=== PATIENT | male | born 1965 | race American Indian/Alaskan Native ===

== ENCOUNTER 2018-01-14 08:07 | Emergency (ER) | payer MEDICARE ==
[2018-01-14 08:17] VITALS: BP 132/89
--- NOTE | 2018-01-14 10:05 | Emergency Department Report ---
ED Back Pain/Injury HPI - General Chief Complaint: Back Pain/Injury Stated Complaint: LOWER BACK AND HIP PAIN Time Seen by Provider: 01/14/18 09:50 Source: patient Limitations: No Limitations - History of Present Illness Initial Comments: This is a 52 y.o. male that presents to the emergency room with left lower back pain for 5 days. Patient states he was incarcerated in [facility] on January 09, 2018 and slipped and fell on water. He was sent for [place] and started on Tylenol and placed on the radius. Patient states pain increased and is a burning sensation in left lower back. Patient reports pain is 8 out of 10 on pain scale and a burning sensation. Pain is aggravated with movement. Patient radiating, numbness or tingling, swelling, bruising, fever, or warmth. MD Complaint: back pain Onset/Timin -: days(s) Similar Symptoms Previously: No Place: other ([facility]) Radiation: none Severity: moderate Severity scale (0 -10): 8 Quality: burning Consistency: intermittent Improves With: none Worsens With: movement, walking Context: fall Associated Symptoms: denies other symptoms Treatments Prior to Arrival: NSAIDS - Related Data Home Medications Medication Instructions Recorded Confirmed Last Taken ARIPiprazole [Abilify] 30 mg PO DAILY 12/28/13 12/28/13 Unknown Mirtazapine [Remeron] 15 mg PO HS 12/28/13 12/28/13 Unknown Trazodone HCl [traZODone] 100 mg PO HS 12/28/13 12/28/13 Unknown buPROPion [Wellbutrin] 200 mg PO HS 12/28/13 12/28/13 Unknown Previous Rx's Medication Instructions Recorded Last Taken Type HYDROcodone/APAP 5-325 [Kirwin 2 each PO Q6H PRN #30 tablet 02/15/13 Unknown Rx 5-325 mg TAB] chlordiazePOXIDE [Librium] 50 mg PO Q6H PRN #30 capsule 07/03/13 Unknown Rx Docusate Sodium [Colace] 50 mg PO TID #50 ml 10/27/13 Unknown Rx Ibuprofen [Motrin] 800 mg PO Q8H PRN #20 tablet 10/27/13 Unknown Rx Ibuprofen [Motrin 800 MG tab] 800 mg PO Q8HR PRN #15 tablet 01/14/18 Unknown Rx Allergies Allergy/AdvReac Type Severity Reaction Status Date / Time acetaminophen [From Tylenol] Allergy Unknown Verified 01/14/18 08:13 ED Review of Systems ROS: Stated complaint: LOWER BACK AND HIP PAIN Other details as noted in HPI Constitutional: denies: chills, fever Respiratory: denies: cough, shortness of breath, wheezing Cardiovascular: denies: chest pain, palpitations Gastrointestinal: denies: abdominal pain, nausea, diarrhea Musculoskeletal: back pain (lower back pain worse on with). denies: joint swelling, myalgia Skin: denies: rash, lesions Neurological: denies: headache, weakness, paresthesias Psychiatric: denies: anxiety, depression ED Past Medical Hx - Past Medical History Alcoholism Family history: no significant family history ED Back Pain Physical Exam - Exam General: Vital signs noted. No distress. Alert and acting appropriately. Back/Abdomen: Yes Sacroiliac Tenderness (left), No Abdominal Tenderness, No Perithoracic Tenderness, No Perilumbar Tenderness, No Flank Tenderness, No Straight Leg Raise Pain Neuro: Yes Normal Sensation, Yes Normal DTR's, Yes Normal Gait, No Motor Weakness ED Course Vital Signs 01/14/18 08:14 Temperature 98.8 F Pulse Rate 93 H Respiratory 16 Rate Blood Pressure 132/89 O2 Sat by Pulse 99 Oximetry ED Medical Decision Making - Radiology Data Radiology results: report reviewed, image reviewed LUMBOSACRAL SPINE, 3 VIEWS: History: Low back pain Findings: The vertebral bodies, disk spaces and posterior elements are intact. No compression deformity or malalignment. Moderate degenerative disc disease is noted at L4-5. Moderate to severe degenerative disc disease is noted at L5-S1. The SI joints are symmetric and unremarkable. Impression: Lumbar spondylosis as described. No acute process. - Medical Decision Making Patient was examined by me in fast track. Vitals are normal and patient is in no acute distress. Patient given pain medication in ER. Obtained a x-ray of L-spine. X-rays read by radiologist and reviewed by myself. No acute findings, lumbar spondylosis. Patient informed of results. Start ibuprofen 800 mg po tid prn. Referral to orthopedic surgeon. Plan discussed with patient to discharge home and treat outpatient. He agrees with ER plan. Patient discharged home in stable condition. Follow up with PCP in 2-3 days. Critical care attestation.: If time is entered above; I have spent that time in minutes in the direct care of this critically ill patient, excluding procedure time. ED Disposition Clinical Impression: Lumbar spondylosis, Degenerative disc disease at L5-S1 level Pain in lower back Qualifiers: Chronicity: acute Back pain laterality: left Sciatica presence: without sciatica Qualified Code(s): M54.5 - Low back pain Disposition: TO HOME OR SELFCARE Is pt being admited?: No Does the pt Need Aspirin: No Condition: Stable Instructions: Degenerative Disc Disease (ED), Lumbar Radiculopathy (ED) Additional Instructions: Rest Use ice or heat on affected area for 20 minutes and off for 2 hours. Take pain medication as needed for pain. Follow-up with orthopedic surgery symptoms are not improving as discussed. Follow up with Primary Care Provider in 2-3 days. Prescriptions: Ibuprofen [Motrin 800 MG tab] 800 mg PO Q8HR PRN #15 tablet PRN Reason: Pain , Severe (7-10) Referrals: [facility] [place]Outside] - 3-5 Days [facility] [Outside] - 3-5 Days [facility] [Outside] - 3-5 Days [facility] [Provider Group] - 3-5 Days Time of Disposition: 10:51 Print Language: TURKMEN
[2018-01-14] MEDS ORDERED: MOTRIN PO ONE (10:06)
--- NOTE | 2018-01-14 10:41 | XRay Report ---
LUMBOSACRAL SPINE, 3 VIEWS: History: Low back pain Findings: The vertebral bodies, disk spaces and posterior elements are intact. No compression deformity or malalignment. Moderate degenerative disc disease is noted at L4-5. Moderate to severe degenerative disc disease is noted at L5-S1. The SI joints are symmetric and unremarkable. Impression: Lumbar spondylosis as described. No acute process.
== END 2018-01-14 11:12 | disposition home or self-care (01) ==
LOC: ED 08:07
DX: M51.37 Other intervertebral disc degeneration, lumbosacral region (principal); M47.9 Spondylosis, unspecified; Z88.8 Allergy status to other drugs, medicaments and biological substances; Z79.899 Other long term (current) drug therapy; W16.42XA Fall into unspecified water causing other injury, initial encounter; Y93.89 Activity, other specified; Y99.8 Other external cause status; Y92.148 Other place in prison as the place of occurrence of the external cause
CPT/HCPCS: 72100